=== PATIENT | female | born 1980 | race Caucasian/White ===

== ENCOUNTER 2020-01-21 15:36 | Emergency (ER) | payer OTHER, MEDICAID ==
[~2020-01-21] VITALS: Ht 175.3 cm; Wt 68.0 kg
[2020-01-21 16:16] LABS: ABSOLUTE LYMPHOCYTES 2.7 thou/uL (0.8-5.3); ABSOLUTE MONOCYTES 0.5 thou/uL (0.0-1.2); ABSOLUTE NEUTROPHILS 1.6 thou/uL (1.6-8.1); BASOPHILS 0.4 %; EOSINOPHILS 0.4 %; HEMATOCRIT 41.9 % (37.0-47.0); HEMOGLOBIN 14.3 gm/dL (12.0-15.0); LYMPHOCYTES 56.7 %; MCH 30.1 pg (26.0-34.0); MCHC 34.2 g/dL (28.0-37.0); MCV 88.1 fL (80.0-100.0); MONOCYTES 9.5 %; MPV 7.3 fl. (7.2-11.1); NUCLEATED RBCS 0 /100WBC; PLATELET COUNT* 240 thou/uL (150-400); RBC 4.75 mil/uL (4.20-5.00); RDW-CV 13.6 % (10.5-14.5); WBC 4.8 thou/uL (4.0-11.0)
[2020-01-21 16:26] LABS: CALCIUM 8.1 mg/dL (8.5-10.1); CREATININE 0.7 mg/dL (0.6-1.3); POTASSIUM 3.3 mmol/L (3.5-5.1)
[2020-01-21 16:39] LABS: ALBUMIN 3.5 g/dL (3.4-5.0); CK-MB MASS 0.5 ng/mL (<0.5-3.6); MAGNESIUM 1.7 mg/dL (1.8-2.4); TOTAL BILIRUBIN 0.4 mg/dL (<0.1-1.0); TOTAL PROTEIN 7.1 g/dL (6.4-8.2)
[2020-01-21] MEDS ORDERED: TESSALON PERLE100 M1 PO (17:55)
[2020-01-21] MEDS ORDERED: ZOFRAN ODT4 MG DISSOLVE (17:55)
[2020-01-21 18:30] VITALS: BP 106/59
--- NOTE | 2020-01-23 12:15 | EKG ---
[place] [address] ELECTROCARDIOGRAM REPORT Name: BETTYE PRESTON Room: [facility]#: [id number] Admission: 01/21/20 Attend Phys: Discharge: 01/21/20 Date of : 82 Date of Service: 01/21/20 1553 Report #: [id number] THIS REPORT FOR: //name// [facility] ED Test Date: 2020-01-21 Test Time: 15:53:45 Pat Name: BETTYE ADAMS Department: Room: Gender: F Utility Person: TDS : 1980 Requested By: Alan Hogue Order Number: [id number] MD: Bert Cordoba Measurements Intervals [place] Rate: 74 P: 45 TX: 98 QRS: 45 QRSD: 90 T: 45 QT: 377 QTc: 419 Interpretive Statements Sinus rhythm Short [place] interval Probable left atrial enlargement Baseline wander in lead(s) V5 No previous ECG available for comparison Electronically Signed On 01-23-2020 12:15:41 PANTRY CHEF by Bert Cordoba [email or web address] <ELECTRONICALLY SIGNED> By: Bert Cordoba MD, FACC 01/23/20 1215 1553 1553 Bert Cordoba MD, [facility] /EPI
== END 2020-01-21 18:30 | disposition home or self-care (01) ==
LOC: M.ERS 15:36
PROVIDERS: Emergency Medicine Emergency Medical Services
DX: U07.1 COVID-19 (principal); R42 Dizziness and giddiness; Z98.890 Other specified postprocedural states

== ENCOUNTER 2020-09-27 15:03 | Inpatient (IN) | payer OTHER, MEDICAID ==
[~2020-09-27] VITALS: Ht 167.6 cm; Wt 61.3 kg
[~2020-09-27 15:03] MED LIST: TESSALON PERLE100 M1 PO; ZOFRAN ODT4 MG DISSOLVE
[2020-09-27 15:10] VITALS: BP 118/67
[2020-09-27 15:39] LABS: ABSOLUTE EOSINOPHILS 0.1 thou/uL (0.0-0.7); ABSOLUTE LYMPHOCYTES 1.8 thou/uL (0.8-5.3); ABSOLUTE MONOCYTES 0.5 thou/uL (0.0-1.2); BASOPHILS 0.5 %; EOSINOPHILS 1.7 %; HEMATOCRIT 37.1 % (37.0-47.0); HEMOGLOBIN 12.9 gm/dL (12.0-15.0); LYMPHOCYTES 24.4 %; MCH 29.4 pg (26.0-34.0); MCHC 34.7 g/dL (28.0-37.0); MCV 84.8 fL (80.0-100.0); MONOCYTES 7.2 %; MPV 7.7 fl. (7.2-11.1); NUCLEATED RBCS 0 /100WBC; PLATELET COUNT* 86 thou/uL (150-400); POLYS 66.2 %; RBC 4.37 mil/uL (4.20-5.00); RDW-CV 13.8 % (10.5-14.5); WBC 7.5 thou/uL (4.0-11.0)
[2020-09-27 15:51] LABS: ANION GAP 3 mmol/L (7-16); BUN 6 mg/dL (7-18); CHLORIDE 105 mmol/L (98-107); CO2 29 mmol/L (21-32); CREATININE 0.5 mg/dL (0.6-1.3); GLUCOSE 87 mg/dL (70-99); POTASSIUM 4.1 mmol/L (3.5-5.1); SODIUM 137 mmol/L (136-145)
[2020-09-27 16:05] LABS: ALBUMIN 3.8 g/dL (3.4-5.0); ALKALINE PHOSPHATASE 156 U/L (46-116); CK-MB MASS < 0.5 ng/mL (<0.5-3.6); LIPASE 53 U/L (73-393); MAGNESIUM 1.7 mg/dL (1.8-2.4); NT-PRO BRAIN NAT PEPTIDE 328 pg/mL (<300); SGOT 10 U/L (15-37); SGPT 19 U/L (30-65); TOTAL BILIRUBIN 0.4 mg/dL (<0.1-1.0); TOTAL PROTEIN 6.8 g/dL (6.4-8.2)
--- NOTE | 2020-09-27 16:33 | EKG ---
[place] [address] ELECTROCARDIOGRAM REPORT Name: BETTYE PRESTON Room: [place] [address] ADM IN [facility].#: [id number] Admission: 09/27/20 Attend Phys: John Echeverria Discharge: Date of : 82 Date of Service: 09/27/20 1511 Report #: [id number] THIS REPORT FOR: //name// [facility] ED Test Date: 2020-09-27 Test Time: 15:11:23 Pat Name: BETTYE ADAMS Department: Room: [facility] Gender: F Supervisor Stone: COSMO CHOWDHURYB: 1980 Requested By: Juan Lane Order Number: [id number] MD: Lane Montes Measurements Intervals [place] Rate: 51 P: 26 MT: 113 QRS: 73 QRSD: 84 T: 48 QT: 407 QTc: 375 Interpretive Statements Sinus rhythm Borderline short MT interval Compared to ECG 01/21/2020 15:53:45 No significant changes Electronically Signed On 09-27-2020 16:33:[address] Montes [email or web address] <ELECTRONICALLY SIGNED> By: Lane Montes MD, FACC 09/27/[address] Montes MD, [facility] /EPI
[2020-09-27 20:48] VITALS: BP 105/54
[2020-09-27 21:04] VITALS: BP 102/47
[2020-09-28 00:08] VITALS: BP 105/57
[2020-09-28 04:09] VITALS: BP 101/52
--- NOTE | 2020-09-28 05:18 | NUR ---
PT ADMITTED TO ROOM 227 DURING HEEL CUTTER; VSS, A+OX4, ALBANIAN SPEAKING BUT DOES UNDERSTAND AND SPEAK UPPER SORBIAN WELL, ROOM AIR, REPORTS MINOR BACK PAIN AND CHEST PRESSURE. SHE IS ABLE TO COMMUNICATE HER NEEDS TO STAFF WITH ONLY MINOR DIFFICULTY. CURRENT PAIN MEDICATION REGIMEN HAS BEEN ADEQUATE FOR CONTROLLING HER PAIN UP TO THIS TIME. SHE HAS BEEN NPO, EXCEPT H2O WITH MEDS, SINCE MIDNIGHT FOR CARDIOLOGY CONSULT TODAY.
[2020-09-28 07:55] LABS: CHOLESTEROL 189 mg/dL (<200); HDL CHOLESTEROL 51 mg/dL (>40); LDL CHOLESTEROL 121 mg/dL (<100); TC:HDL 3.7 Ratio (Not establshd); TRIGLYCERIDE 86 mg/dL (<150); VLDL 17 mg/dL (<40)
[2020-09-28 07:56] LABS: SERUM ASSESSMENT Clear
[2020-09-28 08:30] VITALS: BP 98/55
--- NOTE | 2020-09-28 09:48 | EKG ---
[place] [address] ELECTROCARDIOGRAM REPORT Name: BETTYE PRESTON Room: [place] [address] ADM IN [facility].#: [id number] Admission: 09/27/20 Attend Phys: John Echeverria Discharge: Date of : 82 Date of Service: 09/28/20 0831 Report #: [id number] THIS REPORT FOR: //name// [facility] Test Date: 2020-09-28 Test Time: 08:31:05 Pat Name: BETTYE ADAMS Department: Room: [facility] Gender: F Machine Tracer: : 1980 Requested By: Bert Cordoba Order Number: [id number] Angelica MD: Bert Cordoba Measurements Intervals [place] Rate: 44 P: 70 SC: 128 QRS: 58 QRSD: 90 T: 49 QT: 465 QTc: 398 Interpretive Statements Sinus bradycardia Compared to ECG 09/27/2020 15:11:23 ST segment changes no longer noted Electronically Signed On 09-28-2020 9:47:59 CDT by Bert Cordoba [email or web address] <ELECTRONICALLY SIGNED> By: Bert Cordoba MD, [facility] 09/28/20 0947 0 Bert Cordoba MD, [facility] /EPI
--- NOTE | 2020-09-28 10:03 | NUR ---
CM ASSESSMENT: PT IS A&O, AND INDEPENDENT WITH ADL'S. PT USES 0 DME. PT HAS 0 HX OF HH OR SNF. NO CM D/C PLANNING NEEDS ANTICIPATED. CM WILL REMAIN AVAILABLE TO ASSIST AND FOLLOW NEEDED.
--- NOTE | 2020-09-28 11:08 | CON ---
[address] [address] CONSULTATION Name: DANNY BRYANBETTYE Howard Room: [address] IN [facility]#: [id number] Admission: 09/27/20 Attend Phys: Dre Velazquez Discharge: Date of : 82 Report #: [id number] THIS REPORT FOR: cc: FAM - No family physician/PCP FAM - No family physician/PCP Bert Cordoba MD [facility] ~ DATE OF CONSULTATION: 09/27/2020 CARDIOLOGY CONSULTATION HISTORY OF PRESENT ILLNESS: The patient is a 39-year-old female who I was asked to see in the Emergency Room today after she complained of chest pain. The patient is originally from [place], but moved to [facility] 20 years ago. She is not very active this time. 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 She has no previous history of heart disease. She has had no previous cardiac evaluation. The history is obtained from her son who is present. Her Canadian is somewhat broken. She complains of intermittent burning in her chest. It is not related to exertion or meals. It can make her nauseated. She has been short of breath. She notes occasional irregular heartbeat, but no prolonged palpitations. She has been dizzy. She denied any cough, bleeding or trauma to her chest. PAST MEDICAL HISTORY: She apparently has been 8 times, she delivered 7 times. Her last period was 2 weeks ago. She apparently has a tubal ligation in the past. No history of hypertension, diabetes, hyperlipidemia. CURRENT MEDICATIONS: She is on no medication. ALLERGIES: No known drug allergies. FAMILY HISTORY: Negative for heart disease. SOCIAL HISTORY: She is . She and her and several children live here in [place]. No smoking or alcohol abuse. REVIEW OF SYSTEMS: No history of stroke, asthma, kidney disease, cancer, psychiatric illness or chronic skin condition. PHYSICAL EXAMINATION: GENERAL: Revealed a young female who appeared in no distress. VITAL SIGNS: Blood pressure 120/70, pulse 70. She is afebrile. HEENT: She was anicteric. Conjunctivae pink. Mucosa moist. NECK: Veins not appear distended. No carotid bruits heard. Neck was supple. CHEST: Clear to auscultation. HEART: Regular rate and rhythm without murmur. ABDOMEN: [place] [address] CONSULTATION Name: BETTYE PRESTON Room: [address]#: [id number] Admission: 09/27/20 Attend Phys: Dre Velazquez Discharge: Date of : 82 Report #: [id number] EXTREMITIES: Had no edema. Posterior tibial pulse 1+ bilaterally. SKIN: Cool and dry. NEUROLOGIC: Nonfocal. LABORATORY AND DIAGNOSTIC DATA: ECG on admission showed a sinus bradycardia with nonspecific ST segment changes. Her workup so far; she had a portable chest x-ray that showed normal heart size and clear lung penaloza. Her lab work; sodium 137, creatinine 0.5. Her liver function studies were normal. Troponin was 0.25. BNP 328, hemoglobin 12.9, platelet count was 86,000. Her COVID antigen stat test was negative. IMPRESSION AND RECOMMENDATIONS: 1. Chest burning. Difficult to assess for symptoms of angina due to language difficulty. I would monitor her at this time. 2. Borderline troponin. Consider cardiac catheterization versus stress testing. 3. Abnormal ECG. 4. Nausea, reason unclear. 5. Palpitations. I would monitor the patient overnight. <ELECTRONICALLY SIGNED> By: Bert Cordoba MD, FACC 09/28/20 1108 1602 15Bert Cordoba MD, FACC /nt
[2020-09-28 12:55] VITALS: BP 95/52
--- NOTE | 2020-09-28 13:22 | 2DMMODE ---
[place] [address] 2 D/M-MODE ECHOCARDIOGRAM Name: BETTYE PRESTON Room: [facility] ADM IN [facility].#: [id number] Admission: 09/27/20 Attend Phys: John Echeverria Discharge: Date of : 82 Date of Service: 09/28/20 1322 Report #: [id number] THIS REPORT FOR: cc: FAM - No family physician/PCP FAM - No family physician/PCP Bert Cordoba MD [facility] ~ APPROVED REPORT Study performed: 09/28/2020 10:25:12 EXAM: Comprehensive 2D, Doppler, and color-flow Echocardiogram Patient Location: In-Patient Room #: [facility] Status: routine BSA: 1.69 HR: 43 bpm BP: 101/52 mmHg Rhythm: NSR Other Information Study Quality: Excellent Indications Chest Pain 2D Dimensions IVSd: 7.98 (7-11mm) LVOT Diam: 19.40 (18-24mm) LVDd: 46.86 mm PWd: 8.32 (7-11mm) Ascending Ao: 28.78 (22-36mm) LVDs: 28.85 (25-40mm) Aortic Root: 28.44 mm Volumes Left Atrial Volume (Systole) LA ESV Index: 21.80 mL/m2 Aortic Valve AoV Peak Ramesh.: 1.38 m/s AO Peak Gr.: 7.56 mmHg LVOT Max P.36 mmHg AO Mean Gr.: 3.52 mmHg LVOT Mean P.49 mmHg LVOT Max V: 1.16 m/s AO V2 VTI: 27.21 cm LVOT Mean V: 0.73 m/s BHAVNA (VTI): 2.88 cm2 LVOT V1 VTI: 26.50 [place] [address] 2 D/M-MODE ECHOCARDIOGRAM Name: BETTYE PRESTON Room: [address] IN [facility].#: [id number] Admission: 09/27/20 Attend Phys: John Echeverria Discharge: Date of : 82 Date of Service: 09/28/20 1322 Report #: [id number] Mitral Valve E/A Ratio: 1.38 MV Decel. Time: 194.76 ms MV E Max Ramesh.: 0.62 m/s MV PHT: 56.48 ms MVA (PHT): 3.90 cm2 TDI E/Lateral E': 3.44 E/Medial E': 4.43 Medial E' Ramesh.: 0.14 m/s Lateral E' Ramesh.: 0.18 m/s Pulmonary Valve PV Peak Ramesh.: 1.00 m/s PV Peak Gr.: 4.02 mmHg Left Ventricle The left ventricle is normal size. There is normal LV segmental wall motion. There is normal left ventricular wall thickness. Left ventricular systolic function is normal. The left ventricular ejection fraction is within the normal range. LVEF is 55-60%. The left ventricular diastolic function is normal. Right Ventricle The right ventricle is normal size. The right ventricular systolic function is normal. Atria The left atrium size is normal. The right atrium size is normal. Aortic Valve The aortic valve is normal in structure. No aortic regurgitation is present. There is no aortic valvular stenosis. Mitral Valve The mitral valve is normal in structure. Trace mitral regurgitation. No evidence of mitral valve stenosis. Tricuspid Valve The tricuspid valve is normal in structure. Unable to assess PA pressure. Trace tricuspid regurgitation. Pulmonic Valve The pulmonary valve is normal in structure. There is no pulmonic [place] [address] 2 D/M-MODE ECHOCARDIOGRAM Name: BETTYE PRESTON Room: [address] IN [facility]#: [id number] Admission: 09/27/20 Attend Phys: John Echeverria Discharge: Date of : 82 Date of Service: 09/28/20 1322 Report #: [id number] Great Vessels The aortic root is normal in size. IVC is normal in size and collapses >50% with inspiration. Pericardium There is no pericardial effusion. <Conclusion> Left ventricular systolic function is normal. The left ventricular ejection fraction is within the normal range. There is no pericardial effusion. <ELECTRONICALLY SIGNED> By: Bert Cordoba MD, [facility] 09/28/201321 21 21 Bert Cordoba MD, FAC /INF
[2020-09-28] MEDS ORDERED: FISH OIL 1,001000 M2 PO (14:55)
[2020-09-28] MEDS ORDERED: VITAMIN D325 MC1 PO (14:55)
[2020-09-28] MEDS ORDERED: VITAMIN C1000 MG PO (14:55)
[2020-09-28] MEDS ORDERED: ATORVASTATIN CA20 MG PO (15:16)
[2020-09-28 15:17] VITALS: BP 95/52
--- NOTE | 2020-09-28 15:46 | NUR ---
RECEIVED REPOT. ASSUMED CARE OF PT AROUND 0730. AM ASSESSMENT AND VITALS COMPLETED CHARTED, MEDS PER EMAR. ECHO COMPLETED - NORMAL. DISCHARGE ORDERS RECEIVED. DISCHARGE COMPLETED DOCUMENTED. PT AWARE TO CREDIT RISK MODELER NEW MEDS AND TO FOLLOW UP WITH CARDIOLOGY DIRECTED. IV AND CUSTOMER TRAINER REMOVED. ALL BELONGINGS GATHERED AND SENT OUT WITH PT. PT LEFT UNIT WALKING WITH NURSING STAFF. PT LEFT HOSPITAL IN CAR WITH FAMILY.
== END 2020-09-28 15:48 | disposition home or self-care (01) | DRG 282 ==
LOC: M.ERS 15:03 → M.TBA-ER 16:25 → M.2W 16:25
PROVIDERS: Family Medicine; Internal Medicine Cardiovascular Disease; ADMIT Internal Medicine; ATTEND Internal Medicine
DX: I21.4 Non-ST elevation (NSTEMI) myocardial infarction (principal); I51.4 Myocarditis, unspecified; G89.29 Other chronic pain; M54.9 Dorsalgia, unspecified; E78.5 Hyperlipidemia, unspecified; Z20.822 Contact with and (suspected) exposure to COVID-19

== ENCOUNTER 2020-10-14 18:48 | Observation (INO) | payer OTHER, MEDICAID ==
[~2020-10-14] VITALS: Ht 172.7 cm; Wt 59.0 kg
[~2020-10-14 18:48] MED LIST changes: +ATORVASTATIN CA20 MG PO; +FISH OIL 1,001000 M2 PO; +VITAMIN C1000 MG PO; +VITAMIN D325 MC1 PO
[2020-10-14 19:02] VITALS: BP 113/56
[2020-10-14 19:40] LABS: ABSOLUTE BASOPHILS 0.1 thou/uL (0.0-0.2); ABSOLUTE EOSINOPHILS 0.1 thou/uL (0.0-0.7); ABSOLUTE LYMPHOCYTES 2.6 thou/uL (0.8-5.3); ABSOLUTE MONOCYTES 0.6 thou/uL (0.0-1.2); ABSOLUTE NEUTROPHILS 5.1 thou/uL (1.6-8.1); BASOPHILS 0.9 %; EOSINOPHILS 0.9 %; HEMATOCRIT 39.1 % (37.0-47.0); HEMOGLOBIN 12.9 gm/dL (12.0-15.0); LYMPHOCYTES 30.8 %; MCH 27.8 pg (26.0-34.0); MCV 84.3 fL (80.0-100.0); MONOCYTES 6.9 %; MPV 7.8 fl. (7.2-11.1); NUCLEATED RBCS 0 /100WBC; PLATELET COUNT* 102 thou/uL (150-400); POLYS 60.5 %; RBC 4.64 mil/uL (4.20-5.00); RDW-CV 14.4 % (10.5-14.5); WBC 8.5 thou/uL (4.0-11.0)
[2020-10-14 19:49] LABS: CALCIUM 8.4 mg/dL (8.5-10.1); CREATININE 0.8 mg/dL (0.6-1.3); POTASSIUM 3.9 mmol/L (3.5-5.1)
[2020-10-14 19:53] LABS: ALBUMIN 4.1 g/dL (3.4-5.0); MAGNESIUM 1.6 mg/dL (1.8-2.4); TOTAL BILIRUBIN 0.4 mg/dL (<0.1-1.0); TOTAL PROTEIN 7.3 g/dL (6.4-8.2)
[2020-10-14 20:31] LABS: BE 2.7 mmol/L (-2 to +3); PCO2 38.4 mmHg (35.0-45.0); PO2 80.3 mmHg (75.0-100.0); pH 7.458 (7.340-7.450)
[2020-10-14 22:54] LABS: URINE BILIRUBIN NEGATIVE (Negative); URINE BLOOD TRACE (Negative); URINE CLARITY CLEAR; URINE COLOR STRAW; URINE GLUCOSE-RANDOM NEGATIVE (Negative); URINE KETONES TRACE (Negative); URINE LEUKOCYTES-REFLEX NEGATIVE (Negative); URINE NITRITE-REFLEX NEGATIVE (Negative); URINE PROTEIN NEGATIVE (Negative); URINE SPECIFIC GRAVITY <= 1.005 (1.005-1.030); URINE UROBILINOGEN 0.2 E.U./dl (0.2-1.0)
[2020-10-15] VITALS (7 sets, daily range): BP systolic 92–141; BP diastolic 36–90
--- NOTE | 2020-10-15 10:06 | EKG ---
[place] [address] ELECTROCARDIOGRAM REPORT Name: BETTYE PRESTON Howard Room: [address]#: [id number] Admission: 10/14/20 Attend Phys: Haim Roque, Discharge: Date of : 82 Date of Service: 10/14/201914 Report #: [id number] THIS REPORT FOR: //name// [facility] ED Test Date: 2020-10-14 Test Time: 19:15:31 Pat Name: BETTYE ADAMS Department: Room: [facility] Gender: F Director Digital Strategy: FRANCA : 1980 Requested By: Ana Chacon Order Number: [id number] MD: Bert Cordoba Measurements Intervals [place] Rate: 47 P: 72 SD: 135 QRS: 58 QRSD: 90 T: 27 QT: 414 QTc: 366 Interpretive Statements Sinus bradycardia Minimal ST depression, inferior leads Compared to ECG 09/28/2020 08:31:05 no change Electronically Signed On 10-15-2020 10:06:46 CDT by Bert Cordoba [email or web address] <ELECTRONICALLY SIGNED> By: Bert Cordoba MD, [facility] 10/15/20 1006 14 14 Bert Cordoba MD, [facility] /EPI
[2020-10-16 01:14] VITALS: BP 105/49
[2020-10-16 04:36] VITALS: BP 88/42
[2020-10-16 05:06] LABS: HEMATOCRIT 32.6 % (37.0-47.0); HEMOGLOBIN 11.6 gm/dL (12.0-15.0); MCH 29.2 pg (26.0-34.0); MCHC 35.4 g/dL (28.0-37.0); MCV 82.3 fL (80.0-100.0); MPV 7.2 fl. (7.2-11.1); RBC 3.96 mil/uL (4.20-5.00); RDW-CV 14.1 % (10.5-14.5); WBC 6.8 thou/uL (4.0-11.0)
[2020-10-16 05:21] LABS: CALCIUM 7.9 mg/dL (8.5-10.1); CREATININE 0.6 mg/dL (0.6-1.3); POTASSIUM 3.3 mmol/L (3.5-5.1)
[2020-10-16 07:30] VITALS: BP 97/47
--- NOTE | 2020-10-16 10:41 | NUR ---
CM ASSESSMENT: PT A&O, AND INDEPENDENT WITH ADL'S. PT USES 0 DME. PT HAS 0 HX OF HH OR SNF. NO CM D/C PLANNING NEEDS ANTICIPATED. CM WILL REMAIN AVAILABLE TO ASSIST AND FOLLOW NEEDED.
--- NOTE | 2020-10-16 11:39 | EKG ---
[place] [address] ELECTROCARDIOGRAM REPORT Name: BETTYE PRESTON Room: [address]#: [id number] Admission: 10/14/20 Attend Phys: Haim Roque, Discharge: Date of : 82 Date of Service: 10/16/20 0742 Report #: [id number] THIS REPORT FOR: //name// [facility] Test Date: 2020-10-16 Test Time: 07:42:02 Pat Name: BETTYE ADAMS Department: Room: [address] Gender: F Bellhop Service Captain: carlo : 1980 Requested By: Nato Villagomez Order Number: [id number] Reading MD: Bert Cordoba Measurements Intervals [place] Rate: 42 P: 76 CA: 130 QRS: 67 QRSD: 91 T: 55 QT: 471 QTc: 394 Interpretive Statements Sinus bradycardia RSR' in V1 or V2, probably normal variant Compared to ECG 10/14/2020 19:15:31 RSR' in V1 or V2 now present ST (T wave) deviation no longer present Electronically Signed On 10-16-2020 11:39:30 CDT by Bert Cordoba [email or web address] <ELECTRONICALLY SIGNED> By: Bert Cordoba MD, [facility] 10/16/20 1139 0742 Bert Cordoba MD, [facility] /EPI
--- NOTE | 2020-10-16 11:41 | CON ---
[address] [address] CONSULTATION Name: DANNY BRYAN,BETTYE M Room: [address] [place]#: [id number] Admission: 10/14/20 Attend Phys: Haim Roque MD Discharge: Date of : 82 Report #: [id number] THIS REPORT FOR: cc: FAM - No family physician/PCP FAM - No family physician/PCP Bert Cordoba MD [facility] ~ DATE OF CONSULTATION: 10/14/2020 CARDIOLOGY CONSULTATION HISTORY OF PRESENT ILLNESS: The patient is a 39-year-old female who I was asked to see in the Emergency Room after she was noted to be bradycardic. The history is obtained from some old records as well as a relative who was translated over the phone. The patient is originally from [place] and moved to [facility] [place] [facility] 20 years ago. 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 She has no previous history of heart disease. She was admitted to [facility] 2 weeks ago with chest pain. She complained of nausea and shortness of breath. I saw her in consultation 2 weeks ago. Her troponin was borderline elevated at 0.25. She was felt to be having possible myocarditis. She underwent an echocardiogram two weeks ago during her hospitalization that showed normal left ventricular function. There was no pericardial effusion. She was discharged and has done fairly well until this morning. The patient was brought back to the Emergency Room by family members. She complained of shortness of breath. She complained of tightness in her chest. There is no radiation of the pain. She also complained of being weak and dizzy. She denies any fever or cough. She noticed her heart racing. She has had no edema. She is admitted for further evaluation and treatment. PAST MEDICAL HISTORY: Otherwise, she has a . She had a period two weeks ago. She has had tubal ligation. No history of hypertension, diabetes, hyperlipidemia. MEDICATIONS: She is on no chronic medications. ALLERGIES: No known drug allergies. FAMILY HISTORY: Negative for heart disease. SOCIAL HISTORY: She is . She and her and several children live here in [place]. No smoking, alcohol abuse. REVIEW OF SYSTEMS: No history of stroke, asthma, kidney disease, cancer, psychiatric illness, chronic skin condition. PHYSICAL EXAMINATION: [place] [address] CONSULTATION Name: BETTYE PRESTON [address] [id number] Admission: 10/14/20 Attend Phys: Haim Roque MD Discharge: Date of : 82 Report #: [id number] GENERAL: Revealed a young female lying in bed. She appeared in no acute distress. VITAL SIGNS: She had a blood pressure of 100/60, pulse is 50. She is afebrile. HEENT: She was anicteric. Conjunctivae pink. Mucous membranes moist. NECK: Veins not distended. No carotid bruits. NECK: Supple. CHEST: Clear to auscultation. HEART: Regular, bradycardia. No significant murmur or rub. ABDOMEN: Soft. EXTREMITIES: Had no edema, no Homans sign. Posterior tibial pulse 2+ bilaterally. SKIN: Cool and dry. DIAGNOSTIC DATA: ECG showed sinus bradycardia, nonspecific ST segment changes. Her workup in the Emergency Room last night, she had a portable chest x-ray that showed normal heart size and clear lung penaloza. LABORATORY WORK: Potassium 3.9, creatinine 0.8. Liver function studies were normal. Her troponin is now less than 0.06. Recent lipid profile, cholesterol 180 range, triglyceride 86, HDL 51, LDL 121. TSH 2.5. White blood cell count 8.5, hemoglobin 12.9. Her COVID antigen stat test is negative. Recent urinalysis was negative for protein. IMPRESSION AND RECOMMENDATIONS: 1. Chest pain. No pericardial rub noted. Doubt myocardial ischemia. Recent echo showed no effusion. Suspect noncardiac. 2. Sinus bradycardia. I would avoid beta blockers. 3. Recent presentation with myocarditis. 4. Nausea and vomiting. Consider GI workup. <ELECTRONICALLY SIGNED> By: Bert Cordoba MD, FACC 10/16/20 1141 1325 [id number] Cordoba MD, FACC /nt
[2020-10-16 12:00] VITALS: BP 104/57
[2020-10-16] MEDS ORDERED: PREDNISONE 10 M10 MG PO (12:50)
[2020-10-16 13:18] VITALS: BP 104/57
[2020-10-16 14:29] VITALS: BP 104/57
== END 2020-10-16 14:34 | disposition home or self-care (01) ==
LOC: M.ERS 18:48 → M.TBA-ER 21:14 → M.2W 21:14 → M.TBA-ER 21:14 → M.2W 10-15 14:21
PROVIDERS: Internal Medicine; Personal Emergency Response Attendant; ADMIT Internal Medicine; ATTEND Internal Medicine
DX: R07.89 Other chest pain (principal); R00.1 Bradycardia, unspecified; D69.6 Thrombocytopenia, unspecified; Z20.822 Contact with and (suspected) exposure to COVID-19; R42 Dizziness and giddiness; R11.2 Nausea with vomiting, unspecified; I95.9 Hypotension, unspecified; Z79.899 Other long term (current) drug therapy